=== PATIENT | male | born 1980 | race Caucasian/White ===

== ENCOUNTER 2017-04-17 08:40 | Emergency (ER) | payer OTHER ==
[~2017-04-17] VITALS: Ht 172.7 cm; Wt 84.0 kg
[2017-04-17] MEDS ORDERED: SULF1TAB49 PO (09:33)
[2017-04-17 09:43] VITALS: BP 128/80
== END 2017-04-17 09:44 | disposition home or self-care (01) ==
LOC: ER 08:40
DX: L02.415 Cutaneous abscess of right lower limb (principal); L03.115 Cellulitis of right lower limb; F17.200 Nicotine dependence, unspecified, uncomplicated
CPT/HCPCS: 99283

== ENCOUNTER 2018-11-26 16:59 | Emergency (ER) | payer SELFPAY ==
[~2018-11-26] VITALS: Ht 172.7 cm; Wt 84.1 kg
[2018-11-26 17:00] VITALS: BP 163/104
[2018-11-26] MEDS ORDERED: PENI250T2 PO (17:35)
[2018-11-26] MEDS ORDERED: HYDROcodone/acetaminophen 10/325mg tab PO ONE (17:35)
[2018-11-26] MEDS ORDERED: NAPR-56 PO (17:35)
== END 2018-11-26 17:45 | disposition home or self-care (01) ==
LOC: ER 17:00
DX: K08.89 Other specified disorders of teeth and supporting structures (principal); Z79.2 Long term (current) use of antibiotics; Z79.899 Other long term (current) drug therapy
CPT/HCPCS: 99283

== ENCOUNTER 2019-01-11 10:56 | Emergency (ER) | payer MEDICAID, OTHER ==
[~2019-01-11] VITALS: Ht 172.7 cm; Wt 81.8 kg
[2019-01-11 10:59] VITALS: BP 145/89
[2019-01-11] MEDS ORDERED: CEPH-572 PO (11:41)
[2019-01-11] MEDS ORDERED: SULF1TAB49 PO (11:41)
[2019-01-11] MEDS ORDERED: MUPI22OI30 TOP (11:41)
== END 2019-01-11 11:50 | disposition home or self-care (01) ==
LOC: ER 10:56
DX: L02.511 Cutaneous abscess of right hand (principal)
CPT/HCPCS: 29130; 99283

== ENCOUNTER 2019-03-27 16:01 | Emergency (ER) | payer OTHER ==
[~2019-03-27] VITALS: Ht 172.7 cm; Wt 85.9 kg
[2019-03-27 16:05] VITALS: BP 125/63
== END 2019-03-27 16:50 | disposition home or self-care (01) ==
LOC: ER 16:02
DX: L72.8 Other follicular cysts of the skin and subcutaneous tissue (principal)
CPT/HCPCS: 99281

== ENCOUNTER 2019-06-24 09:34 | Emergency (ER) | payer SELFPAY ==
[~2019-06-24] VITALS: Ht 172.7 cm; Wt 70.5 kg
[2019-06-24 09:43] VITALS: BP 136/81
[2019-06-24] MEDS ORDERED: CYCL-1 PO (09:48)
[2019-06-24] MEDS ORDERED: ketorolac trometh inj. 60 MG/2 ML VIAL IM ONE (09:50)
== END 2019-06-24 10:03 | disposition home or self-care (01) ==
LOC: ER 09:35
DX: S39.012A Strain of muscle, fascia and tendon of lower back, initial encounter (principal); M62.830 Muscle spasm of back; Z79.899 Other long term (current) drug therapy; X50.0XXA Overexertion from strenuous movement or load, initial encounter; Y93.89 Activity, other specified; Y92.89 Other specified places as the place of occurrence of the external cause; Y99.8 Other external cause status
CPT/HCPCS: 96372; 99283; J1885

== ENCOUNTER 2019-06-30 08:40 | Emergency (ER) | payer SELFPAY ==
[~2019-06-30] VITALS: Ht 172.7 cm; Wt 90.0 kg
[~2019-06-30 08:40] MED LIST: CYCL-1 PO
[2019-06-30 08:43] VITALS: BP 136/69
[2019-06-30] MEDS ORDERED: ketorolac trometh inj. 60 MG/2 ML VIAL IM ONE (09:25)
[2019-06-30] MEDS ORDERED: HYDR-3965 PO (09:28)
== END 2019-06-30 10:04 | disposition home or self-care (01) ==
LOC: ER 08:41
DX: M54.5 Low back pain (principal); F17.200 Nicotine dependence, unspecified, uncomplicated; Z79.899 Other long term (current) drug therapy
CPT/HCPCS: 96372; 99283; J1885

== ENCOUNTER 2020-05-31 08:28 | Emergency (ER) | payer MEDICAID, OTHER ==
[~2020-05-31] VITALS: Ht 172.7 cm; Wt 84.7 kg
[2020-05-31 08:43] VITALS: BP 130/79
[2020-05-31] MEDS ORDERED: amox tr/potassium clavulanate 875/125mg TAB PO ONE (09:15)
[2020-05-31] MEDS ORDERED: ketorolac tromethamine 15mg/ml inj. IM ONE (09:15)
[2020-05-31] MEDS ORDERED: AMOX-422 PO (09:32)
[2020-05-31] MEDS ORDERED: NAPR-56 PO (09:32)
== END 2020-05-31 10:23 | disposition home or self-care (01) ==
LOC: ER 08:29
DX: K05.00 Acute gingivitis, plaque induced (principal); K02.9 Dental caries, unspecified; F17.200 Nicotine dependence, unspecified, uncomplicated; Z79.2 Long term (current) use of antibiotics; Z79.899 Other long term (current) drug therapy
CPT/HCPCS: 96372; 99283; J1885